=== PATIENT | male | born 1990 ===

== ENCOUNTER 2018-07-15 03:57 | Emergency (ER) | payer SELFPAY ==
[2018-07-15 04:24] VITALS: BMI 20.9
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
[2018-07-15 06:20] VITALS: BP 131/75; PULSE 93; RESP 18; TEMP 98.6; O2SAT 95
[2018-07-15] MEDS ORDERED: Tramadol 25 mg ONE (06:21)
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
== END 2018-07-15 06:21 | disposition home or self-care (01) ==
LOC: C.ER 03:57
DX: S02.2XXA Fracture of nasal bones, initial encounter for closed fracture (principal); S00.83XA Contusion of other part of head, initial encounter; Y04.0XXA Assault by unarmed brawl or fight, initial encounter